=== PATIENT | male | born 1945 | race Asian ===

== ENCOUNTER 2018-07-15 09:12 | Emergency (ER) | payer MEDICAID ==
[~2018-07-15] VITALS: Ht 160 cm; Wt 67.1 kg
[2018-07-15 09:20] VITALS: BP 142/68
[2018-07-15] MEDS ORDERED: PRED20TA PO (09:31)
--- NOTE | 2018-07-15 09:31 | PHYS DOC ---
Adult General Chief Complaint Chief Complaint: SKIN RASH/ABSCESS [facility] HPI Patient is a 73 year old male presents to the ED complaining of rash to back and legs x 1 week. States that he was out cutting bushes and then developed the rash afterwards. States that the rash is itchy. Tried otc steroid cream with some improvement. No past medical hx. Denies conjunctivitis, chest pain, shortness of breath, dizziness, weakness, fever, lower leg swelling or nausea/vomiting. Review of Systems Review of Systems Constitutional: Denies fever or chills [] Eyes: Denies change in visual acuity, redness, or eye pain [] HENT: Denies nasal congestion or sore throat [] Respiratory: Denies cough or shortness of breath [] Cardiovascular: No additional information not addressed in HPI [] GI: Denies abdominal pain, nausea, vomiting, bloody stools or diarrhea [] : Denies dysuria or hematuria [] Musculoskeletal: Denies back pain or joint pain [] Integument: Complains of rash. Denies skin lesions [] Neurologic: Denies headache, focal weakness or sensory changes [] Endocrine: Denies polyuria or polydipsia [] All other systems were reviewed and found to be within normal limits, except as documented in this note. Allergies Allergies Allergies Coded Allergies Type Severity Reaction Last Updated Verified No Known Drug Allergies 07/15/18 No Physical Exam Physical Exam Constitutional: Well developed, well nourished, no acute distress, non-toxic appearance. [] HENT: Normocephalic, atraumatic Eyes: PERRLA, EOMI, conjunctiva normal, no discharge. [] Neck: Normal range of motion, no tenderness, supple, no stridor. [] Cardiovascular:Heart rate regular rhythm, no murmur [] Lungs & Thorax: Bilateral breath sounds clear to auscultation [] Abdomen: Bowel sounds normal, soft, no tenderness, no masses, no pulsatile masses. [] Skin: Warm, dry. Erythematous macular rash to bilateral upper back and bilateral thighs. No abscess, skin lesions or warmth. Back: No tenderness, no CVA tenderness. [] Extremities: No tenderness, no cyanosis, no clubbing, ROM intact, no edema. [] Neurologic: Alert and oriented X 3, normal motor function, normal sensory function, no focal deficits noted. [] Psychologic: Affect normal, judgement normal, mood normal. [] Current Patient Data Vital Signs Vital Signs Date Time Temp Pulse Resp B/P (MAP) Pulse Ox O2 Delivery O2 Flow Rate FiO2 07/15/18 09:20 97.6 50 16 142/68 (92) 96 Room Air 97.6 EKG EKG [] Radiology/Procedures Radiology/Procedures [] Course & Med Decision Making Course & Med Decision Making Pertinent Labs and Imaging studies reviewed. (See chart for details) [] Dragon Disclaimer Dragon Disclaimer This electronic medical record was generated, in whole or in part, using a voice recognition dictation system. Departure Departure Impression: Primary Impression: Contact dermatitis Disposition: 01 HOME, SELF-CARE Condition: IMPROVED Referrals: KRISHNA IBARRA MD (PCP) Patient Instructions: Contact Dermatitis Scripts Prednisone (PREDNISONE) 20 Mg Tablet 2 TAB PO DAILY for 5 Days, #10 TAB Prov: FRANCO PETERS 07/15/18 FRANCO PETERS July 15, 2018 09:31
== END 2018-07-15 09:38 | disposition home or self-care (01) ==
LOC: ER 09:12
DX: L25.9 Unspecified contact dermatitis, unspecified cause (principal)
CPT/HCPCS: 99283

== ENCOUNTER 2019-03-16 10:08 | Emergency (ER) | payer MEDICAID ==
[~2019-03-16] VITALS: Ht 165.1 cm; Wt 67.1 kg
[~2019-03-16 10:08] MED LIST: PRED20TA PO
[2019-03-16 10:17] VITALS: BP 142/68
--- NOTE | 2019-03-16 10:40 | PHYS DOC ---
Past Medical History Past Medical History: No Pertinent History Past Surgical History: No Surgical History Alcohol Use: None Drug Use: None Adult General Chief Complaint Chief Complaint: SKIN RASH/ABSCESS HPI HPI A 72-year-old male presents with a 3-4 day history of worsening rash on his buttock. It initially started as a thumb-sized raised, red, and itchy lesion. This subsequently spread to multiple thumb-sized raised lesions on his buttock. He denies pain, fever, new meds, new soaps. He reports having this in the past on his arm. He hasn't tried any creams or medicines for it. Review of Systems Review of Systems Constitutional: Denies fever or chills Eyes: Denies redness or eye pain HENT: Denies nasal congestion or sore throat Respiratory: Denies cough or shortness of breath Cardiovascular: Denies chest pain or palpitations GI: Denies abdominal pain, nausea, or vomiting : Denies dysuria or hematuria Musculoskeletal: Denies back pain or joint pain Integument: Multiple raised, erythematous,and itchy rash on his buttocks. Neurologic: Denies headache, focal weakness or sensory changes Complete systems were reviewed and found to be within normal limits, except as documented in this note. Current Medications Current Medications Current Medications Medications (Trade) Dose Ordered Sig/Juan Start Time Stop Time Status Last Admin Dose Admin Dexamethasone (Decadron) 10 mg 1X ONCE 03/16/19 10:45 03/16/19 10:46 DC 03/16/19 10:52 10 MG Diphenhydramine HCl (Benadryl) 25 mg 1X ONCE 03/16/19 10:45 03/16/19 10:46 DC 03/16/19 10:52 25 MG Allergies Allergies Allergies Coded Allergies Type Severity Reaction Last Updated Verified No Known Drug Allergies 07/15/18 No Physical Exam Physical Exam Constitutional: Well developed, well nourished, no acute distress, non-toxic appearance HENT: Normocephalic, atraumatic, oropharynx moist Eyes: PERRL, EOMI, conjunctiva normal, no discharge Neck: Normal range of motion, no tenderness, supple Cardiovascular: Heart rate normal, regular rhythm Lungs & Thorax: Bilateral breath sounds clear to auscultation, no wheezing Abdomen: Soft, no tenderness Skin: Multiple raised thumb size erythematous lesions on his buttock. Do not appear vesicular. Back: No tenderness, no CVA tenderness Extremities: No tenderness, ROM intact, no edema Neurologic: Alert and oriented X 3, normal motor function, normal sensory function, no focal deficits noted Psychologic: Affect normal, judgement normal, mood normal Current Patient Data Vital Signs Vital Signs Date Time Temp Pulse Resp B/P (MAP) Pulse Ox O2 Delivery O2 Flow Rate FiO2 03/16/19 10:17 97.5 52 16 142/68 (92) 97 Room Air 97.5 EKG EKG [] Radiology/Procedures Radiology/Procedures [] Course & Med Decision Making Course & Med Decision Making Patient presents with a 3-4 day history of raised thumb-sized lesions that are itchy spread over his buttock. Rash is most likely uric area secondary to an allergic reaction. Patient was given a prescription for Benadryl and dexamethasone and discharged him home. Dragon Disclaimer Mick Disclaimer This electronic medical record was generated, in whole or in part, using a voice recognition dictation system. Departure Departure Impression: Primary Impression: Urticaria Disposition: HOME, SELF-CARE Condition: STABLE Referrals: UNKNOWN PCP NAME (PCP) Patient Instructions: Hives, [id number] Scripts Diphenhydramine Hcl (BENADRYL) 25 Mg Capsule 1 CAP PO Q4-6HRS PRN for ITCHING, #30 CAP 0 Refills Prov: EDDY LAWSON DO 03/16/19 Prednisone (PREDNISONE) 20 Mg Tablet 2 TAB PO DAILY, #8 TAB Start this prescription tomorrow, Sunday03/17/19 Prov: EDDY LAWSON DO 03/16/19 EDDY LAWSON DO Mar 16, 2019 10:40
[2019-03-16] MEDS ORDERED: diphenhydrAMINE HCL 25 MG CAPSULE PO ONE (10:45)
[2019-03-16] MEDS ORDERED: DEXAMETHASONE 4 MG TABLET PO ONE (10:45)
[2019-03-16] MEDS ORDERED: DIPH25CA58 PO (10:55)
[2019-03-16] MEDS ORDERED: PRED20TA PO (10:55)
== END 2019-03-16 11:00 | disposition home or self-care (01) ==
LOC: ER 10:08
DX: L50.9 Urticaria, unspecified (principal)
CPT/HCPCS: 99283; J8540; Q0163